=== PATIENT | female | born 1970 | race Hispanic/Latino ===

== ENCOUNTER → 2018-08-03 | Outpatient (CLI) | payer OTHER ==
--- NOTE | 2018-08-03 13:20 | Diagnostic Imaging Report ---
Exam: Pelvic ultrasound - non OB History: Left lower quadrant pain. Comparison: None. Findings: Transabdominal and endovaginal sonographic evaluation of the pelvis. Uterus measures 12.1 x 3.7 x 6.4 cm. The endometrial stripe measures 1.6 cm. Nabothian cyst is noted. The right ovary measures 6.5 x 3.5 x 4.9 cm. Doppler flow is demonstrated in the right ovary. There is a simple appearing anechoic right-sided ovarian cyst measuring up to 4.5 cm. Overlying bowel gas obscures visualization of the left adnexa. Left ovary is not visualized. No evidence of free fluid. The bladder is unremarkable in appearance. Right ureteral jet is visualized and the left ureteral jet is not visualized. Impression: Overlying bowel gas obscures visualization of the left adnexa. Left ovary is not visualized. No evidence of free fluid. Doppler flow is demonstrated to the right ovary. Simple appearing 4.5 cm right ovarian cyst, requiring no further imaging follow-up. Incidental Nabothian cyst. Signed by: Dr. Fadi Chen MD on 08/03/2018 1:17 PM
--- NOTE | 2018-08-04 12:24 | Diagnostic Imaging Report ---
#[id number] - MGSCRBIL #BILATERAL FIRST EVER DIGITAL SCREENING MAMMOGRAM WITH CAD: 08/03/2018 CLINICAL: Routine screening. No prior exams were available for comparison. The tissue of both breasts is heterogeneously dense. This may lower the sensitivity of mammography. Current study was also evaluated with a Computer Aided Detection (CAD) system. No significant masses, calcifications, or other findings are seen in either breast. IMPRESSION: NEGATIVE There is no mammographic evidence of malignancy. A 1 year screening mammogram is recommended. The patient will be notified by letter of the results. Lion [email or web address]/[email or web address]:08/04/2018 11:12:46 Shadowgraph Operator: Jossy CONTEH)(M), [facility] letter sent: Normal Exam Mammogram BI-RADS: 1 Negative
== END ==
LOC: US 11:32
PROVIDERS: ATTEND Internal Medicine
DX: R10.32 Left lower quadrant pain (principal); N30.01 Acute cystitis with hematuria
CPT/HCPCS: 76856; 77067